=== PATIENT | male | born 1990 | race Caucasian/White ===

== ENCOUNTER 2021-08-23 10:48 | Emergency (ER) | payer OTHER, SELFPAY ==
[2021-08-23 10:50] VITALS: BP 124/82; PULSE 105; RESP 20; TEMP 36.8; O2SAT 96; BMI 27.3
--- NOTE | 2021-08-23 11:30 | ED.EXTPRO ---
HPI - Extremity Problem General Chief complaint: Extremity Problem,Nontraumatic Stated complaint: Ghout attack Left Knee Time Seen by Provider: 08/23/21 11:00 Source: patient Mode of arrival: Wheelchair Limitations: no limitations History of Present Illness HPI Narrative: The patient developed pain, erythema and warmth to the left knee yesterday, increasing today. He has a prior history of gout in his knee. Symptoms of the same. He has colchicine at his home, he is visiting this area and did not bring the medication with him. He has no fever chills with above symptoms. He has difficulty straightening his leg due to pain. There is no erythema spreading from the noted. His no recent trauma to the knee. He denies fever. Has no chronic skin disease. Related Data Previous Rx's Medication Instructions Recorded colchicine 0.6 mg tablet 0.6 mg PO DAILY #30 tab 08/23/21 indomethacin 50 mg capsule 50 mg PO BID #30 cap 08/23/21 prednisone 20 mg tablet 60 mg PO BID 5 Days #30 tab 08/23/21 prednisone 20 mg tablet 60 mg PO DAILY 5 Days #15 tab 08/23/21 Allergies Allergy/AdvReac Type Severity Reaction Status Date / Time No Known Drug Allergies Allergy Verified 08/23/21 10:58 Review of Systems Review of Systems Narrative: See HPI Patient History Social History Smoking Status: Never smoker Smoking Status: Never smoker alcohol intake frequency: holidays/special occasions only Substance Use Type: does not use Exam Initial Vital Signs Initial Vital Signs: Vital Signs Temperature 98.2 F 08/23/21 10:50 Pulse Rate 105 H 08/23/21 10:50 Respiratory Rate 20 08/23/21 10:50 Blood Pressure 124/82 08/23/21 10:50 Pulse Oximetry 96 08/23/21 10:50 Const General: cooperative and healthy appearing Orientation: Orientation ([place] x3) Skin General: no rashes or lesions noted Neuro General: patient alert, patient awake, patient oriented x3 and no focal motor deficits Extrem Other: Erythema to the left knee, just dorsal to the patella. Slight edema. Slight warmth. Decreased extension due to the pain. No left calf tenderness. Exam is consistent with prior episode of gout. There is no erythema spreading from the site. Course Course Course Narrative: Patient was given Toradol IM, colchicine and prednisone. He is still having some left knee discomfort, but he thinks the pain is already improving. He will be discharged on Indocin, colchicine and prednisone. He is advised to return here if there is significant increased redness, pain or fever associated with the left knee situation. Orders Ordered: Discontinued Medications Colchicine (Colchicine 0.6 Mg Tablet) 0.6 mg PO NOW ONE Stop: 08/23/21 11:35 Last Admin: 08/23/21 11:42 Dose: 0.6 mg Documented by: MARTIN Ketorolac Tromethamine (Ketorolac 30 Mg/Ml Vial) 30 mg IM NOW ONE Stop: 08/23/21 11:35 Last Admin: 08/23/21 11:43 Dose: 30 mg Documented by: MARTIN Prednisone (Prednisone 20 Mg Tablet) 60 mg PO NOW ONE Stop: 08/23/21 11:35 Last Admin: 08/23/21 11:42 Dose: 60 mg Documented by: MARTIN Vital Signs Vital signs: Vital Signs - 8 hr 08/23/21 12:13 Pulse Rate 84 Respiratory Rate 15 Blood Pressure 113/80 Pulse Oximetry 99 Discharge Plan Departure Patient Disposition: Home Clinical Impression: Gout Instructions: Gout Activity Restrictions/Additional Instructions: Be sure you are drinking plenty of water and remain well hydrated. You have been given discharge guidance for gout management. Indocin 3 times daily for knee pain. Colchicine 1 tablet daily into the pain and swelling resolving the left knee. Prednisone 60 mg daily for 5 days. If you of significant increase of redness or swelling, or if you develop fever you should return to the ER. Prescriptions: New indomethacin 50 mg capsule 50 mg PO BID Qty: 30 0RF Rx Instructions: administer with food or milk prednisone 20 mg tablet 60 mg PO BID 5 Days Qty: 30 0RF colchicine 0.6 mg tablet 0.6 mg PO DAILY Qty: 30 0RF prednisone 20 mg tablet 60 mg PO DAILY 5 Days Qty: 15 0RF
[2021-08-23] MEDS: COLCHICINE 0.6 MG TABLET PO (11:42)
[2021-08-23] MEDS: predniSONE 20 MG TABLET 60 MG PO (11:42)
[2021-08-23] MEDS: KETOROLAC 30 MG/ML VIAL IM (11:43)
[2021-08-23 12:13] VITALS: BP 113/80; PULSE 84; RESP 15; O2SAT 99
== END 2021-08-23 12:43 | disposition home or self-care (01) ==
PROVIDERS: Emergency Provider Emergency Medicine
DX: M10.9 Gout, unspecified (principal)
CPT/HCPCS: 96372; 99283; J1885

== ENCOUNTER → 2023-04-03 13:14 | Outpatient (CLI) | payer OTHER, SELFPAY ==
--- NOTE | 2023-04-03 | DI.RAD.S_ITS ---
PROCEDURE: FL SHOULDER INJECTION MR/CT LT INDICATIONS: LEFT SHOULDER INSTABILITY COMPARISON: [facility], SHOULDER INJECTION FOR MR/CT, 10/01/2015, 8:27. TECHNIQUE: The indications, alternatives, benefits, risks, and complications of the procedure were explained to the patient. Written informed consent was obtained and placed in the chart. The shoulder was examined fluoroscopically and a site for needle placement chosen for entry into the glenohumeral joint from an anterior approach. The skin was prepped and draped in a sterile fashion, and 1% lidocaine infiltrated from skin down to joint capsule. A spinal needle was inserted into the glenohumeral joint, and a small amount of iodinated contrast media injected to confirm intra-articular placement of the needle tip. This was followed by approximately 12 mL dilute solution of a gadolinium containing MR contrast agent. The needle was removed and a dressing was applied. The patient was given postprocedural instructions and sent to the MR suite for MR imaging. FINDINGS: A single fluoroscopic spot image demonstrates intra-articular location of injected iodinated contrast. IMPRESSION: Successful fluoroscopically guided administration of dilute Gadolinium solution into the shoulder joint for MR arthrogram. Dictated by: Dejuan Castro M.D. on 04/03/2023 at 13:59 Approved by: Dejuan Csatro M.D. on 04/03/2023 at 14:00
--- NOTE | 2023-04-03 | DI.MRI.S_ITS ---
PROCEDURE: MR SHOULDER LT W CON INDICATIONS: LEFT SHOULDER INSTABILITY TECHNIQUE: After the administration of 12 mL of dilute intra-articular Gadolinium contrast, oblique coronal T1 and T2 spin echo with fat saturation, oblique sagittal T1 spin echo with and without fat saturation, oblique sagittal T2 fast spin echo with fat saturation, axial T1 spin echo with fat saturation through the shoulder. COMPARISON: [facility], MR, SHOULDER WITH CONTRAST, 10/01/2015, 8:45. FINDINGS: Image quality: Excellent. Rotator cuff: Low to moderate grade articular and bursal bursal surface partial thickness tear involving distal supraspinatus at its insertion on the humeral head is seen extending to musculotendinous junction. Distal infraspinatus tendinosis and low-grade articular surface partial-thickness tear at its insertion on the humeral head is seen. The subscapularis tendon is intact. No full-thickness rotator cuff tendon rupture. No significant rotator cuff muscle atrophy on sagittal images. Bones and bursae: Postsurgical changes are noted involving anterior labrum from prior labral repair. No bone marrow contusions or fractures. No acromioclavicular joint degeneration. The acromion demonstrates conventional anatomy, without an os acromiale. Capsule and soft tissues: Postsurgical changes are noted involving anterior labrum without abnormal contrast extension to suggest recurrent tear. The glenohumeral ligaments appear intact. The long head of the biceps tendon demonstrates normal location and morphology. The rotator interval appears normal, without fibrosis. The coracohumeral ligament is of normal thickness. No intra-articular bodies. IMPRESSION: 1. Postsurgical changes from prior labral repair. No gross marrow edema. No acute fracture or dislocation. No suspicious bony lesions. No intra-articular loose bodies. 2. No evidence of definite recurrent labral tear. 3. Low to moderate grade articular and bursal surface partial thickness tear involving distal supraspinatus extending to musculotendinous junction. Low-grade articular surface partial-thickness tear involving distal infraspinatus at its insertion on the humeral head. No full-thickness rotator cuff tendon rupture. Dictated by: Kyler Larkin M.D. on 04/06/2023 at 10:18 Approved by: Kyler Larkin M.D. on 04/06/2023 at 10:22
[2023-04-03] MEDS: SODIUM CHLORIDE 0.9 % 20 ML VIAL IV (14:56)
[2023-04-03] MEDS: LIDOCAINE 1% 20 ML INJ (14:56)
== END ==
DX: M25.312 Other instability, left shoulder (principal); M75.112 Incomplete rotator cuff tear or rupture of left shoulder, not specified as traumatic
CPT/HCPCS: 23350; 73222

== ENCOUNTER 2023-10-22 10:07 | Day surgery (SDC) | payer OTHER, SELFPAY ==
[2023-10-20 15:04] VITALS: BMI 29.6
[2023-10-22] VITALS (7 sets, daily range): BP systolic 116–141; BP diastolic 84–98; PULSE 63–93; RESP 12–20; TEMP 36.1–36.6; O2SAT 94–100; BMI 29.6
[2023-10-22] MEDS: LACTATED RINGERS 1,000 ML 42 ML IV ×2 (11:11→17:30)
[2023-10-22] MEDS: ACETAMINOPHEN 325 MG TABLET 975 MG PO (11:11)
--- NOTE | 2023-10-22 15:18 | PM.PREOP ---
Pre-operative Note Interval Note History & Physical reviewed/Exam performed by Physician: Yes Changes to H&P: No
--- NOTE | 2023-10-22 16:04 | SUR.PREOP ---
Block start time [1535] . Monitoring initiated and maintained throughout procedure. Oxygen and medications given per anesthesiologist Patient remained stable throughout procedure, no adverse reactions noted. Block end time [1552 ].
[2023-10-22] MEDS: CEFAZOLIN 2 GM/100 ML PREMIX 100 ML IV (16:25)
--- NOTE | 2023-10-22 16:58 | SUR.OPER ---
Lateral on padded OR bed with nelson bag positioner, head on pillow, gel axillary roll in place, bottom leg bent with gel pad under knee to foot, upper leg straight and supported with pillows. Operative arm secured in shoulder positioning suspension device. non-operative arm secured on padded arm board. Safety belt at hip, tape over blanket securing lower legs.
[2023-10-22] MEDS: BUPIVACAINE 0.25% (PF) 30 ML, EPINEPHrine 0.15 MG INJ (17:29)
[2023-10-22] MEDS: OXYCODONE IR 5 MG TABLET PO ×2 (18:43→19:18)
[2023-10-22] MEDS: ONDANSETRON 4 MG/2 ML INJ IV (19:19)
--- NOTE | 2023-10-25 12:01 | PM.OP.1 ---
Operative Date/Time/Diagnoses Date of procedure: 10/22/23 Time of procedure: 12:03 Pre-op diagnosis: Left recurrent shoulder dislocation Post-op diagnosis: same Procedure & Clinicians Procedure: 1. Bankart repair left shoulder 2. Remplissage left shoulder Same procedure as scheduled: Yes Indications: Dejuan is a 33-year-old male Who has shoulder instability after dislocation. MRI demonstrates a failed previously fixed labral tear. In order to prevent further dislocations into decrease the risk of arthritis we discussed performing arthroscopic Bankart repair with possible remplissage. Risks were again discussed with the patient and they wished to go forward with surgery. Surgeon: Shant Maldonado Movers: Martina Soriano Anesthesia Type: General Operative Notes Findings: Findings: Exam under anesthesia:Subluxation over the rim anteriorly which is reducible. No instability posteriorly Biceps long head: Intact sling, normal attachment to the anchor. Subscapularis: Intact Rotator cuff: Intact without any undersurface tearing noted Inferior capsule: Intact and attached to the glenoid and humeral head Glenoid cartilage: No chondromalacia, no anterior bone loss noted Humeral head: Smooth and intact, broad Hill-Sachs lesion noted posterior Anterior labrum: Tear noted from 6 o'clock to 9 o'clock Closure Type: primary Specimen(s): none sent Prosthetic devices, grafts, tissues, transplants, or devices: Implants: Arthrex 1.8 mm knotless FiberTak x 4 Arthrex 2.6 mm knotless FiberTak x2 Estimated Blood Loss (mL): 10 Procedure in detail: Description of procedure: The patient was seen and evaluated in the preoperative holding area where the risks, benefits, and alternatives of the surgery were discussed. Risks include bleeding, infection, damage to neurovascular structures including the axillary nerve, blood clots including pulmonary embolism, worsening of pain, stiffness, swelling, failure of the surgery, recurrent instability and the need for future surgery. No guarantees were made regarding outcomes. They consented to surgery and the correct operative extremity was marked with my initials. The patient was then brought to the operating room and underwent smooth induction of anesthesia. Patient was placed in the lateral position with the left upper extremity facing up. An axillary roll was placed and all bony prominences were padded and the beanbag was suctioned. 2 g of Ancef were delivered intravenously. The left upper extremity was prepped and draped in the standard sterile fashion. The arm was placed in the suspension device with 10 lb of weight. A time-out was then performed in my initials were again confirmed. A standard posterior portal was then established and an anterior inferior portal was established using a gentleman I. Last a viewing portal was established just posterior to the biceps long head tendon. A diagnostic scope was performed noting the above findings. A 7 mm cannula was used for the posterior and viewing portals. Without breaching the posterior capsule with a cannula, 2 separate all suture knotless anchors were placed into the Hill-Sachs lesion using our posterior portal incision. The sutures were kept separate from each other and snapped, saved to be used at the end of the case. A liberator was used through the anterior working portal to elevate the anterior labrum and capsule off of the anterior glenoid. A ring curette was used to freshen up the edges of the cartilage. Using a 1.8 mm Arthrex knotless FiberTak system we began posterior and inferiorly using a curved guide starting at the 5:00 p.m. position. The 1st anchor was placed and a SutureLasso was used to take the passing suture around the labrum and capsule. This was then tightened down through the anterior working portal using the knotless system. This process was repeated at 7, 8 and 9 o'clock ending at the height of upper border of the subscapularis Last, we turned our attention back to the remplissage repair. A passing suture from each anchor it was run through the other anchor and then tightened, creating a repair on the outside of the capsule and filling in the Hill-Sachs lesion. This proved to be a good repair and the head was noted to be centered over the glenoid at the end of the case. The shoulder was suctioned dry and the arthroscope was removed. 15 cc of Marcaine were placed into the joint. Portals were then closed with Monocryl and dressed with Xeroform, 4x4s and ABDs. Patient was placed into a sling and woken from anesthesia. Attending/assistant professor of radiology participation: This operation could not have been safely performed (without compromising the technical results or length of the procedure) without the assistance of a skilled surgical services manager. The surgical services manager was medically necessary for proper positioning, retraction and manipulation of instruments, proper exposure and manipulation of tissue. Complications: none Post-operative Condition: stable Disposition: PACU Plan for aftercare: Postoperative instructions: Sling to remain on for 6 weeks. Patient may remove dressings after postoperative day 3, and allow soap and water to run over the incisions in the shower. Placed Band-Aids over the incisions for at least 2 more days. First postoperative visit in 2 weeks, 2nd postoperative visit in 6 weeks.
== END 2023-10-22 19:34 | disposition home or self-care (01) ==
PROVIDERS: Referring Provider Orthopaedic Surgery; Visit Provider Orthopaedic Surgery
PROC: 0RQK4ZZ Repair Left Shoulder Joint, Percutaneous Endoscopic Approach (ICD-10-PCS; CPT 29807; principal; 2023-10-22 12:45)
DX: M24.412 Recurrent dislocation, left shoulder (principal); G89.18 Other acute postprocedural pain; S42.292A Other displaced fracture of upper end of left humerus, initial encounter for closed fracture
CPT/HCPCS: 29806; 29999; 64450; J0171; J0690; J1100; J1170; J1885; J2250; J2405; J2704; J3010

== ENCOUNTER 2024-07-22 08:33 | Emergency (ER) | payer OTHER, SELFPAY ==
[2024-07-22 08:45] VITALS: BP 125/73; PULSE 84; RESP 16; TEMP 36.4; O2SAT 99; BMI 30.4
--- NOTE | 2024-07-22 08:48 | DI.RAD.S_ITS ---
PROCEDURE: XR ANKLE RT MIN 3V INDICATIONS: ankle pain swelling, fall TECHNIQUE: 3 views of the ankle were acquired. COMPARISON: None. FINDINGS: Bones: No fractures or dislocations. Ankle mortise is normally aligned. No suspicious bony lesions. Soft tissues: Moderate tibiotalar joint effusion. Achilles tendon appears normal. IMPRESSION: No acute bony abnormality. Moderate joint effusion. Internal derangement not excluded. Dictated by: Juancarlos Escobar M.D. on 07/22/2024 at 9:30 Approved by: Juancarlos Escobar M.D. on 07/22/2024 at 9:30
--- NOTE | 2024-07-22 09:52 | ED.LOWEXIN ---
HPI - Extremity Injury (Lower) General Chief Complaint: Extremity Injury, Lower Stated Complaint: Might have broken his right Ankle Time Seen by Provider: 07/22/24 09:26 Source: patient, RN notes reviewed and old records reviewed Mode of arrival: Ambulatory Limitations: no limitations History of Present Illness HPI Narrative: 33-year-old male history of gout presents with complaint of injury to right ankle. Patient states last night he was up he has had some cold cough symptoms. Ferney lightheaded and fell or passed out. He states has not had any additional episodes, was checked out by his who is an RN. He states he has not concerned about the syncope but has pain of the lateral medial malleoli but particularly with the medial side. Pain with weight-bearing. Patient states at rest it is little bit painful but not as much as when he walks. Denies any numbness tingling or weakness. Does have some swelling. He states there might be some bruising started. Denies any other injuries. Denies any recurrent syncope, no chest pain, no shortness of breath no other symptoms. States he is on colchicine, allopurinol and indomethacin for gout. Denies major surgeries. No known drug allergies. No tobacco, occasional alcohol, no recreational drugs. Patient states that he has crutches at home. Related Data Home Medications Medication Instructions Recorded Confirmed allopurinol 100 mg tablet 100 mg PO DAILY 10/22/23 10/22/23 Previous Rx's Medication Instructions Recorded colchicine 0.6 mg tablet 0.6 mg PO DAILY #30 tabs 08/23/21 indomethacin 50 mg capsule 50 mg PO BID #30 caps 08/23/21 hydrocodone 5 mg-acetaminophen 325 1 tab PO Q6H PRN pain #20 tabs 10/22/23 mg tablet ibuprofen 600 mg tablet 600 mg PO Q6H PRN pain #60 tabs 10/22/23 ondansetron HCl 4 mg tablet 4 mg PO Q8H PRN nausea and 10/22/23 vomiting #10 tabs Allergies Allergy/AdvReac Type Severity Reaction Status Date / Time No Known Drug Allergies Allergy Verified 10/22/23 11:15 Review of Systems Review of Systems ROS Unobtainable: All systems reviewed & are unremarkable except as noted in HPI and below Patient History Medical History Recurrent dislocation, left shoulder (2011) Surgical History S/P anterior Bankart repair of left shoulder (2017) Social History household members: significant other Smoking Status: Never smoker alcohol intake: current Smoking Status: Never smoker alcohol intake frequency: holidays/special occasions only Exam Narrative Exam Narrative: GENERAL: Alert and oriented x three, well-appearing male in mild distress. HEENT: Head normocephalic, atraumatic, EOMI, pupils reactive, face symmetric, moist mucous membranes NECK: Supple, full range of motion CARDIOVASCULAR: Regular rate and rhythm without murmurs, rubs or gallops. No JVD. No edema bilateral lower extremities. RESPIRATORY: Breath sounds equal bilaterally, no wheezes rales or rhonchi. ABDOMEN: Soft, nontender. Normoactive bowel sounds all 4 quadrants. No guarding or rebound, rigidity, no mass : No CVA tenderness EXTREMITIES: Normal range of motion, no clubbing. Patient has some swelling over the lateral and particularly with the medial malleoli. There is some slight ecchymosis on the underside of the medial malleoli. Patient's only mildly tender on both. He was little bit more tender just inferior to the medial malleoli. Normal range of motion. No other bony tenderness to the right lower extremity. Normal sensation. 2+ dorsalis pedis. Neurovascularly intact NEUROLOGICAL: Cranial nerves II through XII grossly intact. Moving all extremities SKIN: Warm, dry, no petechiae, no rashes or lesions. Initial Vital Signs Initial Vital Signs: Vital Signs Temperature 97.6 F 07/22/24 08:45 Pulse Rate 84 07/22/24 08:45 Respiratory Rate 16 07/22/24 08:45 Blood Pressure 125/73 07/22/24 08:45 Pulse Oximetry 99 07/22/24 08:45 Oxygen Delivery Method Room Air 07/22/24 08:45 Course Orders Ordered: ED Orders 07/22/24 08:48 XR ankle RT min 3V Stat Vital Signs Vital signs: Vital Signs - 8 hr 07/22/24 08:45 Temperature 97.6 F Pulse Rate 84 Respiratory Rate 16 Blood Pressure 125/73 Pulse Oximetry 99 Oxygen Delivery Method Room Air MDM - Extremity Injury (Lower) Imaging Data Extremity x-ray #1: Radiologist's Impression: [address] [address] XRay Report Signed Patient: Dejuan Tomlin MR#: [id number] : 1990 Acct:[id number] Age/Sex: 33 / M Date of Service: 07/22/24 Loc: ED Accession Number: [id number] Procedure: XR ankle RT min 3V Ordering Provider: Jeanne Springer D.O. PROCEDURE: XR ANKLE RT MIN 3V INDICATIONS: ankle pain swelling, fall TECHNIQUE: 3 views of the ankle were acquired. COMPARISON: None. FINDINGS: Bones: No fractures or dislocations. Ankle mortise is normally aligned. No suspicious bony lesions. Soft tissues: Moderate tibiotalar joint effusion. Achilles tendon appears normal. IMPRESSION: No acute bony abnormality. Moderate joint effusion. Internal derangement not excluded. Dictated by: Juancarlos Escobar M.D. on 07/22/2024 at 9:30 Approved by: Juancarlos Escobar M.D. on 07/22/2024 at 9:30 [facility] Narrative Medical decision making narrative: 33-year-old male does note a syncopal episode last night, states he has had little bit of a cold. He is well-appearing currently. Defers syncope workup. Patient does have swelling and changes consistent probably with strain but has pain with weight-bearing and meets criteria for imaging of his ankle. Ankle x-ray is negative. Patient had crutches at home, we will put an ortho boat, weightbear as tolerated follow up in 7-10 days if persistent symptoms. Also discussed with patient if he is any other syncopal episodes or changes in his to return for re-evaluation. He expresses understanding and agreement. Discharge Plan Departure Patient Disposition: Home Clinical Impression: Ankle sprain and strain Instructions: DI for Ankle Sprain Activity Restrictions/Additional Instructions: Follow-up if your symptoms are not improving in the next 7-10 days. Your x-ray does not show any breaks or fractures, you may just have an ankle sprain but if you are having persistent symptoms you should have repeat imaging. Weightbear as tolerated Splint Care: Keep splint clean and dry. Elevated affected body part to decrease swelling. OK to use ice pack on the affected body part. Use for 15-20 minutes each time, for 5-6x per day. If you develop worsening pain, numbness, tingling, discoloration of the affected body part, adjust the ortho boot, and either see your doctor for an urgent re-assessment, or return to the Emergency Department. Return to the Emergency Department for any new or worsening symptoms. Prescriptions: No Action indomethacin 50 mg capsule 50 mg PO BID Qty: 30 0RF Rx Instructions: administer with food or milk colchicine 0.6 mg tablet 0.6 mg PO DAILY Qty: 30 0RF allopurinol 100 mg tablet 100 mg PO DAILY hydrocodone-acetaminophen 5-325 mg tablet 1 tab PO Q6H PRN (Reason: pain) Qty: 20 0RF ondansetron HCl 4 mg tablet 4 mg PO Q8H PRN (Reason: nausea and vomiting) Qty: 10 0RF ibuprofen 600 mg tablet 600 mg PO Q6H PRN (Reason: pain) Qty: 60 0RF Referrals: ProviderSadiq [Primary Care Provider] - Stand Alone Forms: Patient Portal/API/Survey, Work Release Note
== END 2024-07-22 10:00 | disposition home or self-care (01) ==
PROVIDERS: Emergency Provider Emergency Medicine
DX: S93.401A Sprain of unspecified ligament of right ankle, initial encounter (principal); S96.911A Strain of unspecified muscle and tendon at ankle and foot level, right foot, initial encounter; R55 Syncope and collapse; W19.XXXA Unspecified fall, initial encounter
CPT/HCPCS: 73610; 99283